=== PATIENT | male | born 1980 | race Caucasian/White ===

== ENCOUNTER → 2023-12-08 15:35 | Outpatient (BNVA) | payer MEDICAID, SELFPAY | PROVIDERS: Visit Provider Nurse Practitioner | DX: Z20.2 Contact with and (suspected) exposure to infections with a predominantly sexual mode of transmission (principal) | CPT/HCPCS: 81000; 87086; 87491; 87591 ==

== ENCOUNTER 2024-01-03 14:35 | Outpatient (CLI) | payer MEDICAID, SELFPAY ==
--- NOTE | 2024-01-03 15:00 | US_ITS ---
WS: [id number] TESTICULAR ULTRASOUND HISTORY: LEFT testicular pain. COMPARISON: None available. TECHNIQUE: Real-time and color Doppler imaging or utilized to perform a testicular ultrasound. Right testicle: 5.3 cm x 3.3 cm x 2.2 cm. Normal size and echogenicity. No mass or torsion. Central benign calcification measures 5 mm. Normal color Doppler is present throughout. Systolic and diastolic velocities are both present. No significant hydrocele. Right epididymis: Normal epididymis with no increased vascularity. Left testicle: 4.1 cm x 3.8 cm x 2.6 cm. Normal size and echogenicity. No mass or torsion. Normal color Doppler is present throughout. Systolic and diastolic velocities are both present. No significant hydrocele. Left epididymis: Normal epididymis with no increased vascularity. US/US scrotum [id number] IMPRESSION: NORMAL TESTICULAR ULTRASOUND. No mass or torsion. No evidence for epididymitis.
== END 2024-01-03 14:36 | disposition home or self-care (01) ==
LOC: RAD 14:35
PROVIDERS: PCP Nurse Practitioner; Visit Provider Nurse Practitioner
DX: N50.89 Other specified disorders of the male genital organs (principal)
CPT/HCPCS: 76870

== ENCOUNTER 2024-09-25 11:05 | Emergency (ER) | payer MEDICAID, SELFPAY ==
[2024-09-25 11:07] VITALS: BP 123/78; PULSE 86; RESP 18; TEMP 36.8; O2SAT 94; BMI 31.5
--- NOTE | 2024-09-25 11:40 | CT_ITS ---
WS: [id number] CT ABDOMEN PELVIS TECHNIQUE: Contrast-enhanced CT of the abdomen and pelvis with coronal and sagittal reformatted images. CLINICAL INFORMATION: abd pain COMPARISON: None. DLP: 893.[address] scans at [facility] use at least one of these dose optimization techniques: automated exposure control; mA and/or kV adjustment per patient size (includes targeted exams where dose is matched to clinical indication); or iterative reconstruction. FINDINGS: Bibasilar atelectasis. Hepatomegaly. Hepatic steatosis. Normal portal vein and splenic vein. Normal pancreatic parenchymal enhancement. Normal spleen. Small esophageal hiatal hernia. Normal caliber abdominal aorta. Normal renal parenchymal enhancement. No hydronephrosis. Small bilateral renal cysts. Normal caliber abdominal aorta. Appendix is not definitely visualized. No evidence of acute appendicitis. CT/CT abdomen pelvis w con* [id number] IMPRESSION: 1. Hepatomegaly diffuse fatty infiltration of the liver. 2. A few incidental renal cysts. 3. Appendix is not visualized but no evidence of acute appendicitis. 4. Small esophageal hiatal hernia.
--- NOTE | 2024-09-25 11:59 | ED_ITS ---
HPI - Abdominal Pain 2 General: Chief Complaint: Abdominal Pain Stated Complaint: abn pain, bleeding Time Seen by Provider: 09/25/24 11:29 Source: patient Mode of arrival: ambulatory Limitations: no limitations History of Present Illness: 43-year-old male states that he has been having some blood-tinged stools up to going on for 3 to 4 months. He denies any lightheadedness denies any abdominal pain he denies any diarrhea. States he said no weakness but is continue to have bloody stools he has not seen anyone for this. Associated Symptoms: Reports hematochezia; Denies chills, diarrhea, fever(s), nausea and vomiting Related Data Home Medications ?Medication ?Instructions ?Recorded ?Confirmed No Known Home Medications 09/25/2409/02 Allergies Allergy/AdvReac Type Severity Reaction Status Date / Time No Known Allergies Allergy Verified 12/13/23 13:00 Review of Systems 2 Const: Denies: fever(s), chills, body aches or change in appetite ENMT: Denies: throat pain or dental pain Card: Denies: chest pain Resp: Denies: dyspnea GI: Reports: abdominal pain and hematochezia; Denies: nausea, vomiting or diarrhea Musc: Denies: neck pain or back pain Skin/Breast: Denies: rash Neuro: Denies: headache(s) Physical Exam 2 Const: COMMON NORMALS: no acute distress, patient oriented x3 and healthy appearing HENMT: COMMON NORMALS: normocephalic and atraumatic HEAD & SCALP: n ormocephalic and atraumatic Eye: COMMON NORMALS: conjunctivae normal CONJUNCTIVA: Yes conjunctivae normal Neck/C-Spine: COMMON NORMALS: full ROM and supple Chest: COMMONS NORMALS: normal inspection of the chest Resp: COMMON NORMALS: normal respiratory effort, No retractions, No use of accessory muscles and clear to auscultation bilaterally AUSCULTATION: clear to auscultation bilaterally Cardio: COMMON NORMALS: regular rate, regular rhythm and No murmurs present (Cardio) RATE: regular rate RHYTHM: regular rhythm GI: COMMON NORMALS: Normal to inspection, nondistended, normoactive bowel sounds present, Soft to palpation, non-tender and no masses PALPATION: Yes Soft to palpation Extremity: COMMON NORMALS: normal to inspection and full ROM Neuro: COMMON NORMALS: patient oriented x3, moves all extremities and no focal motor deficits Psych: COMMON NORMALS: mental status grossly normal, Normal thought process present and cooperative THOUGHT PROCESS: Normal thought process present Skin: COMMON NORMALS: no rashes or lesions noted and no wounds GENERAL SKIN EXAM: no rashes or lesions noted Course 2 Vital Signs: Vital signs: Vital Signs Temperature 98.2 F 09/25/24 11:07 Pulse Rate 90 09/25/24 12:55 Respiratory Rate 18 09/25/24 11:07 Blood Pressure 117/80 09/25/24 12:55 Pulse Oximetry 99 09/25/24 12:55 Oxygen Delivery Me thod Room Air 09/25/24 12:55 MDM - Abdominal Pain Medical Decision Making Patient presents here with lower GI bleeding is been going on for months he is well-appearing here his hemoglobin is normal does have a slight elevation in his creatinine no signs of acute renal failure informed he needs need a PCP will get him follow-up with surgery as he needs a colonoscopy as well he stable for discharge he is return if worsening he understands agrees to plan Medical Records I reviewed the patient's medical records. Lab Data I reviewed the patient's lab results. 09/25/24 12:04 09/25/24 12:04 Labs/Radiology: Radiology Impressions Abdomen/Pelvis CT 09/25/24 11:40 IMPRESSION: 1. Hepatomegaly diffuse fatty infiltration of the liver. 2. A few incidental renal cysts. 3. Appendix is not visualized but no evidence of acute appendicitis. 4. Small esophageal hiatal hernia. Laboratory Results WBC 6.39 10^3/uL (3.29-11.43) 09/25/24 12:04 RBC 5.60 10^6/uL (3.85-5.65) 09/25/24 12:04 Hgb 16.60 g/dL (11.27-16.99) 09/25/24 12:04 Hct 50.5 % (37-53) 09/25/24 12:04 MCV 90.2 fl (82-101) 09/25/24 12:04 MCH 29.6 pg (27-33) 09/25/24 12:04 MCHC 32.9 g/dL (30-55) 09/25/24 12:04 RDW 12.6 % (12.1-15.1) 09/25/24 12:04 Plt Count 232 10^3/cmm (157-399) 09/25/24 12:04 MPV 10.8 fL (7.4-10.4) H 09/25/24 12:04 Neut % (Auto) 59.3 % 09/25/24 12:04 Lymph % (Auto) 29.7 % 09/25/24 12:04 [place] % (Auto) 6.6 % 09/25/24 12:04 Eos % (Auto) 2.5 % 09/25/24 12:04 Baso % (Auto) 1.4 % 09/25/24 12:04 Neut # (Auto) 3.79 10^3/uL (1.8-7.7) 09/25/24 12:04 Lymph # (Auto) 1.9 10^3/uL (0.8-4.8) 09/25/24 12:04 [place] # (Auto) 0.4 10^3/uL (0.2-0.9) 09/25/24 12:04 Eos # (Auto) 0.2 10^3/uL (0.0-0.8) 09/25/24 12:04 Baso # (Auto) 0.1 10^3/uL (0.0-0.1) 09/25/24 12:04 Nucleated RBC % (auto) 0 % 09/25/24 12:04 Nucleated RBCs # 0.0 /100WBC 09/25/24 12:04 Sodium 135 mmol/L (136-145) L 09/25/24 12:04 Potassium 3.7 mmol/L (3.5-5.1) 09/25/24 12:04 Chloride 97 mmol/L (98-107) L 09/25/24 12:04 Carbon Dioxide 25 mmol/L (22-29) 09/25/24 12:04 Anion Gap 16.7 (5-19) 09/25/24 12:04 BUN 32 mg/dL (6-20) H 09/25/24 12:04 Creatinine 2.0 mg/dL (0.7-1.2) H 09/25/24 12:04 GFR Calculation 36.6 mL/min (90-130) L 09/25/24 12:04 Glucose 153 mg/dL (65-115) H 09/25/24 12:04 Calculated Osmolality 290 mOsm/kg (285-295) 09/25/24 12:04 Calcium 8.6 mg/dL (8.5-10.5) 09/25/24 12:04 Total Bilirubin 0.5 mg/dL (0.15-1.2) 09/25/24 12:04 AST 30 U/L (0-40) 09/25/24 12:04 ALT 29 U/L (0-41) 09/25/24 12:04 Alkaline Phosphatase 183 U/L (40-130) H 09/25/24 12:04 Total Protein 7.2 g/dL (6.6-8.7) 09/25/24 12:04 Albumin 3.1 g/dL (3.5-5.2) L 09/25/24 12:04 Globulin 4.1 g/dL (1.3-4.6) 09/25/24 12:04 Lipase 26 U/L (13-60) 09/25/24 12:04 All radiology interpretation(s) finalized by discharge Discharge Plan Discharge Patient Disposition: Home Clinical Impression: Acute lower GI bleeding Condition: Stable Prescriptions: No Action No Known Home Medications Discharge Orders: Discharge ED (Routine); Ordered 09/25/24 Ordered By: Marjan Sykes Referrals: Raudel Vital MD [Physician] - 4-7 days Ольга Horta FNP [Primary Care Provider] - Discharge Diet: Advance as tolerated Discharge Activity: Resume usual activity Patient Instructions: Rectal Bleeding (ED) Print Language: Nepali Coding Level of Care Code ED Nuclear Medicine Technician for Brian Saini
[2024-09-25 12:14] LABS: Basophils # 0.1 10^3/uL (0.0-0.1); Basophils % 1.4 %; Eosinophils # 0.2 10^3/uL (0.0-0.8); Eosinophils % 2.5 %; Hematocrit 50.5 % (37-53); Lymphocytes # 1.9 10^3/uL (0.8-4.8); Lymphocytes % 29.7 %; Mean Corpuscular HGB Conc 32.9 g/dL (30-55); Mean Corpuscular Hemoglobin 29.6 pg (27-33); Mean Corpuscular Volume 90.2 fl (82-101); Mean Platelet Volume 10.8 fL (7.4-10.4); Monocytes # 0.4 10^3/uL (0.2-0.9); Monocytes % 6.6 %; Neutrophils # 3.79 10^3/uL (1.8-7.7); Neutrophils % 59.3 %; Nucleated Red Blood Cells % 0 %; Platelet Count 232 10^3/cmm (157-399); Red Cell Distribution Width 12.6 % (12.1-15.1); White Blood Count 6.39 10^3/uL (3.29-11.43)
[2024-09-25] MEDS: iohexol 350 mg/mL 500 mL Btl (per mL) IV (12:42)
[2024-09-25 12:55] VITALS: BP 117/80; PULSE 90; O2SAT 99
[2024-09-25 13:46] VITALS: BP 113/86; PULSE 87; O2SAT 99
--- NOTE | 2024-09-25 13:53 | DCPLANNER ---
Message sent to General surgery - Acute GI Bleed
[2024-09-25 16:52] LABS: Anion Gap 20.4 (5-19); Blood Urea Nitrogen 16 mg/dL (6-20); Carbon Dioxide 21 mmol/L (22-29); Chloride 102 mmol/L (98-107); Potassium 4.4 mmol/L (3.5-5.1); Sodium 139 mmol/L (136-145)
[2024-09-25 16:55] LABS: Calcium 9.3 mg/dL (8.5-10.5); Glomerular Filtration Rate 73.1 mL/min (90-130); Glucose 104 mg/dL (65-115); Osmolality Calculated 289 mOsm/kg (285-295)
[2024-09-25 16:56] LABS: Alanine Aminotransferase 71 U/L (0-41); Albumin Level 4.4 g/dL (3.5-5.2); Alkaline Phosphatase 158 U/L (40-130); Aspartate Amino Transferase 57 U/L (0-40); Globulin 3.2 g/dL (1.3-4.6); Lipase 96 U/L (13-60); Total Bilirubin 0.3 mg/dL (0.15-1.2); Total Protein 7.6 g/dL (6.6-8.7)
== END 2024-09-25 13:47 | disposition home or self-care (01) ==
PROVIDERS: Emergency Provider Emergency Medicine; PCP Nurse Practitioner
DX: K92.2 Gastrointestinal hemorrhage, unspecified (principal)
CPT/HCPCS: 74177; 80053; 83690; 85025; 99285